=== PATIENT | male | born 1965 | race American Indian/Alaskan Native ===

== ENCOUNTER 2016-09-01 15:01 | Emergency (ER) | payer SELFPAY ==
[2016-09-01 16:03] LABS: Hemoglobin 14.4 gm/dl (11.8-15.2); Mean Corpuscular HGB Conc 34 % (32-34); Mean Corpuscular Hemoglobin 32 pg (28-32); Mean Corpuscular Volume 96 fl (84-94); Platelet Count 274 K/mm3 (140-440); Red Cell Distribution Width 13.2 % (13.2-15.2)
[2016-09-01 16:11] LABS: Anion Gap 16 mmol/L; BUN/Creatinine Ratio 4.44; Blood Urea Nitrogen 4 mg/dL (9-20); Calcium 8.6 mg/dL (8.4-10.2); Carbon Dioxide 28 mmol/L (22-30); Chloride 101.1 mmol/L (98-107); Glucose 92 mg/dL (75-100); Potassium 4.1 mmol/L (3.6-5.0); Sodium 141 mmol/L (137-145)
[2016-09-01 16:40] LABS: Basophils % (Manual) 0 % (0.0-1.8); Blastocytes % (Manual) 0 %; Diff Status Complete; Large Platelets 1+; Platelet Estimate Consistent w Auto; RBC Morphology Normal
[2016-09-01] MEDS ORDERED: NACL 0.9% 1000 ML 1,000 ML IV ONE (17:46)
--- NOTE | 2016-09-01 18:13 | Cat Scan Report ---
FINAL REPORT PROCEDURE: CT HEAD/BRAIN WO CON TECHNIQUE: Computerized tomography of the head was performed without contrast material. HISTORY: CONFUSION COMPARISON: No prior studies are available for comparison. FINDINGS: Brain: Brain density appears normal. No evidence of intracranial hemorrhage. No parenchymal hemorrhage, mass lesions or mass effect are seen. No abnormal extraxial fluid collects or masses are seen. Ventricles: Ventricles are normal size and are midline. Bone Windows: No evidence of skull fracture. Paranasal sinuses: There is minimal patchy mucosal disease in anterior ethmoid air cells on the left. Paranasal sinuses otherwise are clear. Mastoid air cells: Clear IMPRESSION: Negative unenhanced CT scan of the brain. Minimal paranasal sinus disease. No other abnormalities are identified.
[2016-09-01 18:23] LABS: Creatine Kinase 250 units/L (55-170)
--- NOTE | 2016-09-01 19:20 | Emergency Department Report ---
- General Chief complaint: Weakness Stated complaint: WEAK Time Seen by Provider: 09/01/16 16:35 Source: patient Mode of arrival: Ambulatory Limitations: No Limitations - History of Present Illness Initial comments: 51-year-old male with past medical history of CVA, hypertension presenting to the emergency department complaining of generalized weakness and dehydration. 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 Patient states he does have AC in the home however is not doing a great job at keeping him cool: He feels like he needs "IV fluids". Patient also complaining of dull chest pain. He states he's been having pain for about a week. Pain is in the left chest area, nonradiating, no relaxing no worsening factors. Patient states pain is 2/10. She states he's had a stress test last year. That was negative for acute findings. MD Complaint: generalized weakness -: Gradual Location: generalized Severity: mild Severity scale (0 -10): 10 Consistency: other (improving ) Improves with: none Worsens with: none Associated Symptoms: chest pain. denies: confusion, dark stools, easy bruising , fever/chills, headaches, loss of appetite, shortness of breath, syncope - Related Data Previous Rx's Medication Instructions Recorded Last Taken Type Aspirin 81 mg PO DAILY #30 tab.chew 09/01/16 Unknown Rx Allergies Allergy/AdvReac Type Severity Reaction Status Date / Time No Known Allergies Allergy Unverified 09/01/16 15:16 ED Review of Systems ROS: Stated complaint: WEAK Other details as noted in HPI Constitutional: denies: chills, fever Eyes: denies: eye pain, eye discharge, vision change ENT: denies: ear pain, throat pain Respiratory: denies: cough, shortness of breath, wheezing Cardiovascular: chest pain. denies: palpitations, dyspnea on exertion, orthopnea, edema, syncope, paroxysmal nocturnal dyspnea Endocrine: no symptoms reported Gastrointestinal: denies: abdominal pain, nausea, diarrhea Genitourinary: denies: urgency, dysuria Musculoskeletal: denies: back pain, joint swelling, arthralgia Skin: denies: rash, lesions Neurological: denies: headache, weakness, paresthesias Psychiatric: denies: anxiety, depression Hematological/Lymphatic: denies: easy bleeding, easy bruising ED Past Medical Hx - Past Medical History Previous Medical History?: Yes Hx Heart Attack/AMI: Yes Additional medical history: Erectile dysfunction - Surgical History Past Surgical History?: Yes Hx Coronary Stent: Yes - Social History Smoking Status: Current Every Day Smoker Substance Use Type: Prescribed - Medications Home Medications: Home Medications Medication Instructions Recorded Confirmed Last Taken Type Aspirin 81 mg PO DAILY #30 tab.chew 09/01/16 Unknown Rx ED Physical Exam - General Limitations: No Limitations General appearance: alert, in no apparent distress - Head Head exam: Present: atraumatic, normocephalic - Eye Eye exam: Present: PERRL, EOMI - ENT ENT exam: Present: normal exam, normal orophraynx - Neck Neck exam: Present: normal inspection, full ROM. Absent: tenderness, meningismus - Respiratory Respiratory exam: Present: normal lung sounds bilaterally. Absent: respiratory distress, wheezes - Cardiovascular Cardiovascular Exam: Present: regular rate, normal rhythm - GI/Abdominal GI/Abdominal exam: Present: soft. Absent: distended, tenderness - Neurological Exam Neurological exam: Present: alert, oriented X3, CN II-XII intact, normal gait. Absent: motor sensory deficit, reflexes normal - Psychiatric Psychiatric exam: Present: normal affect, normal mood. Absent: flat affect, manic ED Course Vital Signs 09/01/16 09/01/16 09/01/16 15:16 16:18 16:20 Temperature 98.1 F Pulse Rate 96 H 75 Respiratory 20 16 16 Rate Blood Pressure 129/81 Blood Pressure 117/73 [Left] O2 Sat by Pulse 97 99 99 Oximetry 09/01/16 19:49 Temperature 98.1 F Pulse Rate 70 Respiratory 18 Rate Blood Pressure Blood Pressure 109/69 [Left] O2 Sat by Pulse 99 Oximetry - Reevaluation(s) Reevaluation #1: 09/01/16 19:17 Patient is a note 4 however he does have episodes where he appears confused. For example he told the nurse that his "arm was hungry and pointed to his arm". Pt repeatedly addressed to me that he is trying to find help obtaining his disability insurance. Reevaluation #2: 09/01/16 20:20 I spoke to the patient's sister Maria Fernanda Neal who states patient lives with her and his mental status is his baseline. His boss was on the phone as well who states pt is at his baseline and that he often has abnormal behavior however that is "how he is" ED Medical Decision Making - Lab Data Result diagrams: 09/01/16 15:43 09/01/16 15:43 - EKG Data EKG shows normal: sinus rhythm, axis (normal), intervals (normal), QRS complexes (normal) Rate: normal - EKG Data When compared to previous EKG there are: previous EKG unavailable (rigth ventricular conduction delay ) - Radiology Data Radiology results: image reviewed interpreted by me: No acute findings - Medical Decision Making 51 yo male with PMhx of hypertension and CVA presenting to the emergency department complaining of dehydration and chest pain. Chest pain workup was negative for STEMI, NSTEMI. I have low suspicion for unstable angina as patient states he has had negative stress test less than a year prior. Chest x- ray negative for pneumonia. I see no signs of dissection. Patient low risk for PE. He admits his pain has improved and he is stable to discharge home that he has gotten Iv fluids. Critical Care Time: No Critical care attestation.: If time is entered above; I have spent that time in minutes in the direct care of this critically ill patient, excluding procedure time. ED Disposition Clinical Impression: Dehydration, Chest pain Disposition: DC-01 TO HOME OR SELFCARE Is pt being admited?: No Does the pt Need Aspirin: No Condition: Stable Instructions: Chest Pain (ED) Prescriptions: Aspirin 81 mg PO DAILY #30 tab.chew Referrals: PRIMARY CARE, [Primary Care Provider] - 3-5 Days JOÃO ROSAS MD, PHD [Staff Physician] - EMI PASCUAL MD [Staff Physician] - 3-5 Days BIRGIT SNOW MD [Staff Physician] - 3-5 Days Forms: Work/School Release Form(ED) Time of Disposition: 20:28
[2016-09-01 20:12] LABS: Urine Drugs of Abuse Note Disclamer
[2016-09-01 20:53] VITALS: BP 122/84
--- NOTE | 2016-09-02 07:26 | XRay Report ---
ROUTINE CHEST, TWO VIEWS: HISTORY: chest pain. The trachea, heart, mediastinal contour, lung regan and bony thorax are unremarkable. IMPRESSION: Unremarkable chest x-ray.
== END 2016-09-01 20:40 | disposition home or self-care (01) ==
LOC: ED 15:01
DX: E86.0 Dehydration (principal); R07.9 Chest pain, unspecified; I25.2 Old myocardial infarction; F17.200 Nicotine dependence, unspecified, uncomplicated; Z95.818 Presence of other cardiac implants and grafts; Z79.82 Long term (current) use of aspirin
CPT/HCPCS: 36415; 70450; 71020; 80048; 80307; 82550; 84484; 85007; 85025; 93005; 93010; 96360; 99285; G0480; J7030; 80320